=== PATIENT | female | born 2000 | race Caucasian/White ===

== ENCOUNTER 2019-07-03 11:54 | Emergency (ER) | payer BC ==
[~2019-07-03] VITALS: Ht 157.5 cm; Wt 81.8 kg
[2019-07-03 12:21] VITALS: Ht 157.5 cm; Wt 81.8 kg
[2019-07-03 12:35] LABS: BASOPHIL % 0.4 % (0-2); PLATELET COUNT 352 x10^3mcL (130-400); RED CELL DISTRIBUTION WIDTH 13.8 % (11.5-14.5)
[2019-07-03 13:07] LABS: CALCIUM 9.9 mg/dL (8.5-10.1); CARBON DIOXIDE 31.7 mmol/L (21-32); CHLORIDE SERUM 102 mmol/L (98-107); CREATININE SERUM 0.7 mg/dL (0.6-1.0); GFR1 > 60 mL/min; GLUCOSE SERUM 115 mg/dL (74-106); POTASSIUM SERUM 4.6 mmol/L (3.5-5.1); SODIUM SERUM 142 mmol/L (136-145)
[2019-07-03 13:12] LABS: ALBUMIN 4.1 g/dL (3.4-5.0); ALKALINE PHOSPHATASE 92 U/L (46-116); ALT/SGPT 32 U/L (14-59); AST/SGOT 15 U/L (15-37); BILIRUBIN TOTAL 0.4 mg/dL (0.20-1.00)
[2019-07-03 13:17] LABS: TOTAL PROTEIN, SERUM 8.9 g/dL (6.4-8.2)
[2019-07-03 14:40] VITALS: BP 125/91
== END 2019-07-03 14:40 | disposition home or self-care (01) ==
LOC: ED 11:54
DX: K59.00 Constipation, unspecified (principal); E05.90 Thyrotoxicosis, unspecified without thyrotoxic crisis or storm
CPT/HCPCS: 36415